=== PATIENT | male | born 1985 | race Caucasian/White ===

== ENCOUNTER 2018-11-26 15:14 | Emergency (ER) | payer BC ==
--- NOTE | 2018-11-26 17:31 | CT ---
CT BRAIN WITHOUT CONTRAST: HISTORY: Fall. Hit eye. Loss of consciousness. FINDINGS: No evidence of infarct, hemorrhage, midline shift, or abnormal extraaxial fluid collections is seen. The ventricular size is normal, and the basilar cisterns are patent. The bony calvarium is intact. Facial bone fractures are present, with soft tissue air in the periorbital and right facial regions. There is an air-fluid level in the right maxillary sinus. IMPRESSION: No CT evidence of acute intracranial process. Please see CT facial bones report. POS: [facility]
--- NOTE | 2018-11-26 17:39 | CT ---
CT FACIAL BONES NONCONTRAST: 11/26/2018 HISTORY: Mechanical fall. The patient hit eye on dresser. FINDINGS: There are mildly displaced fractures involving the anterior as well as lateral and posterolateral wal ls of the right maxillary antrum. Fractures are mildly depressed into the maxillary antrum. Fractur es involving the lateral and posterolateral wall are mildly comminuted. There is a fracture involvin g the more posterior aspect of the right lateral orbital wall with a small fracture fragment displace d medially. There is question of subtle orbital floor fractures seen more posteriorly, but there is no herniation of orbital fat into the maxillary antrum. There are no post septal inflammatory change s or evidence of a hematoma. The globes are normal and symmetric in appearance bilaterally. There is extensive right periorbital subcutaneous emphysema, with emphysema seen lateral to the right maxillary antrum and extending inferiorly, adjacent to the right mandible and eventually into the noel bmental region. There is mild periorbital subcutaneous soft tissue swelling also present. There is a fluid level in the right maxillary antrum, demonstrating increased density related to hemo rrhage. The remainder of the paranasal sinuses, as well as the visualized mastoid air cells, is kala r. IMPRESSION: 1. Comminuted and slightly displaced fractures involving the anterior, lateral, and posterolateral w alls of the right maxillary antrum, with hemorrhage within the right maxillary antrum. 2. Fracture of the right lateral orbital wall with small fracture fragments slightly displaced media lly, into the inferior aspect of the right orbit. However, there is no abnormal thickening or abnorm al appearance of the rectus muscles, and there are no post septal inflammatory changes or evidence of hematoma. 3. Extensive periorbital subcutaneous emphysema, as well as emphysema extending inferiorly, to the l evel of the submental region, adjacent to the right mandible. 4. Questionable subtle nondisplaced fracture involving the orbital floor, likely related to extensio n of the fracture involving the superior and lateral right maxillary antral wall. 5. The above findings were discussed with Dr. Maddox in the emergency department on 11/26/2018 at 1714 hours. CODE CR POS: [facility]
[2018-11-26] MEDS ORDERED: Acetaminophen 325 MG TAB ONE (18:19)
== END 2018-11-26 18:32 | disposition home or self-care (01) ==
LOC: ERS 15:14
DX: S02.31XA Fracture of orbital floor, right side, initial encounter for closed fracture (principal); F90.9 Attention-deficit hyperactivity disorder, unspecified type; W19.XXXA Unspecified fall, initial encounter
CPT/HCPCS: 70450; 70486